=== PATIENT | male | born 1940 | race Caucasian/White ===

== ENCOUNTER → 2020-07-08 | Outpatient (CLI) | payer MEDICARE | END | disposition home or self-care (01) | LOC: RAH 14:30 | PROVIDERS: ATTEND Family Medicine | DX: C61 Malignant neoplasm of prostate (principal); N40.1 Benign prostatic hyperplasia with lower urinary tract symptoms; R53.0 Neoplastic (malignant) related fatigue | CPT/HCPCS: 76770 ==

== ENCOUNTER 2021-03-03 00:49 | Emergency (ER) | payer MEDICARE ==
[~2021-03-03] VITALS: Ht 170.2 cm; Wt 61.7 kg
[2021-03-03 01:26] LABS: APPEARANCE,URINE Clear (CLEAR); BILIRUBIN,URINE Negative (NEGATIVE); COLOR,URINE Yellow (YELLOW); GLUCOSE, URINE (UA) Negative (NEGATIVE); KETONES,URINE Negative (NEGATIVE); LEUKOCYTE ESTERASE ,URINE Negative (NEGATIVE); NITRATE,URINE Negative (NEGATIVE); OCCULT BLOOD,URINE Negative (NEGATIVE); PH,URINE 6.5 (5.0-8.0); PROTEIN,URINE Negative (NEGATIVE)
[2021-03-03 01:52] LABS: BASOPHILS % (AUTO) 0.3 % (0.0-5.0); EOSINOPHILS % (AUTO) 2.9 % (0.0-8.0); LYMPHOCYTES % (AUTO) 17.8 % (21.0-51.0); MEAN CORPUSCULAR HEMOGLOBIN 31.8 pg (27.0-33.0); MEAN CORPUSCULAR HGB CONC 33.5 g/dL (32.0-36.0); MEAN CORPUSCULAR VOLUME 94.7 fL (79-99); MONOCYTES % (AUTO) 10.8 % (3.0-13.0); NEUTROPHILS % (AUTO) 67.9 % (40.0-77.0); PLATELET COUNT (AUTO) 188 K/uL (130-400); RED BLOOD CELL COUNT(AUTO) 3.59 MIL/uL (4.50-6.20); RED CELL DISTRIBUTION WIDTH 12.4 % (11.0-15.5); WHITE BLOOD COUNT (AUTO) 3.8 K/uL (4.8-10.8)
[2021-03-03] MEDS ORDERED: 0.9%NACL 1000ML 1,000 ML IV ONE (02:00)
[2021-03-03 02:03] LABS: POTASSIUM 4.4 mmol/L (3.5-5.1)
[2021-03-03 02:09] LABS: B-TYPE NATRIURETIC PEPTIDE 122 pg/mL (0-100)
[2021-03-03 02:16] LABS: ALBUMIN 3.5 g/dL (3.5-5.0); BILIRUBIN,TOTAL 0.4 mg/dL (0.2-1.0); THYROID STIMULATING HORMONE 1.55 uIU/mL (0.36-3.74); TOTAL PROTEIN, SERUM 6.8 g/dL (6.0-8.3)
[2021-03-03] MEDS ORDERED: IOHEXOL 350 MG/ML 100ML INFUS..BTL IV ONE (02:36)
[2021-03-03 03:33] VITALS: BP 149/75
== END 2021-03-03 05:06 | disposition home or self-care (01) ==
LOC: EDH 00:49
DX: E86.9 Volume depletion, unspecified (principal); R53.1 Weakness; R53.81 Other malaise; I25.10 Atherosclerotic heart disease of native coronary artery without angina pectoris; I25.2 Old myocardial infarction; M19.90 Unspecified osteoarthritis, unspecified site; Z85.46 Personal history of malignant neoplasm of prostate; Z95.5 Presence of coronary angioplasty implant and graft
CPT/HCPCS: 36415; 70450; 71260; 74177; 80053; 81003; 83605; 83735; 83880; 84443; 84484; 85025; 96360; 96361; 99285; J7030; Q9967

== ENCOUNTER → 2021-03-12 | Outpatient (CLI) | payer MEDICARE | END | disposition home or self-care (01) | LOC: SHCH 15:43 | PROVIDERS: ATTEND Internal Medicine Cardiovascular Disease | DX: I35.1 Nonrheumatic aortic (valve) insufficiency (principal); R55 Syncope and collapse | CPT/HCPCS: 93306; 93356 ==

== ENCOUNTER 2021-04-18 08:05 | Observation (INO) | payer MEDICARE ==
[~2021-04-18] VITALS: Ht 170.2 cm; Wt 110.1 kg
[2021-04-18 08:56] LABS: BASOPHILS % (AUTO) 1.2 % (0.0-5.0); HEMATOCRIT 32.1 % (42-54); LYMPHOCYTES % (AUTO) 14.4 % (21.0-51.0); MEAN CORPUSCULAR HEMOGLOBIN 30.8 pg (27.0-33.0); MEAN CORPUSCULAR HGB CONC 31.8 g/dL (32.0-36.0); MONOCYTES % (AUTO) 8.9 % (3.0-13.0); NEUTROPHILS % (AUTO) 64.3 % (40.0-77.0); PLATELET COUNT (AUTO) 186 K/uL (130-400); RED BLOOD CELL COUNT(AUTO) 3.31 MIL/uL (4.50-6.20); RED CELL DISTRIBUTION WIDTH 12.1 % (11.0-15.5); WHITE BLOOD COUNT (AUTO) 4.2 K/uL (4.8-10.8)
[2021-04-18] MEDS ORDERED: 0.9%NACL 1000ML 1,000 ML IV ONE (09:00)
[2021-04-18 09:07] LABS: CREATININE 1.1 mg/dL (0.5-1.5); INR 1.07 (0.85-1.15); POTASSIUM 4.1 mmol/L (3.5-5.1); PROTHROMBIN TIME 11.6 SEC (9.6-11.6)
[2021-04-18 09:11] LABS: ALBUMIN 3.7 g/dL (3.5-5.0); BILIRUBIN,TOTAL 0.5 mg/dL (0.2-1.0); TOTAL PROTEIN, SERUM 7.1 g/dL (6.0-8.3)
[2021-04-18 09:19] LABS: B-TYPE NATRIURETIC PEPTIDE 154 pg/mL (0-100)
[2021-04-18 09:23] LABS: APPEARANCE,URINE Clear (CLEAR); BILIRUBIN,URINE Negative (NEGATIVE); COLOR,URINE Yellow (YELLOW); GLUCOSE, URINE (UA) Negative (NEGATIVE); KETONES,URINE Negative (NEGATIVE); LEUKOCYTE ESTERASE ,URINE Negative (NEGATIVE); NITRATE,URINE Negative (NEGATIVE); OCCULT BLOOD,URINE Negative (NEGATIVE); PH,URINE 6.5 (5.0-8.0); PROTEIN,URINE Negative (NEGATIVE)
[2021-04-18] MEDS ORDERED: IOHEXOL-350 75 ML VIAL IV ONE (09:38)
[2021-04-18 10:49] LABS: HEMATOCRIT 33.2 % (42-54)
[2021-04-18] MEDS ORDERED: ACETAMINOPHEN 325 MG TAB PO PRN (11:00)
[2021-04-18] MEDS ORDERED: TEMAZEPAM 15 MG CAPSULE PO PRN (11:00)
[2021-04-18] MEDS ORDERED: ACETAMINOPHEN 650 MG SUPPOSITORY RC PRN (11:00)
[2021-04-18] MEDS ORDERED: DOCUSATE SODIUM 100 MG CAP PO PRN (11:00)
[2021-04-18] MEDS ORDERED: 0.9%NACL 1000ML 1,000 ML IV SCH (11:00)
[2021-04-18] MEDS ORDERED: FINA5TAB41 PO (11:41)
[2021-04-18] MEDS ORDERED: DULO30CA52 PO (11:41)
[2021-04-18] MEDS ORDERED: CARV6.25 PO (11:41)
[2021-04-18] MEDS ORDERED: ISOS30TA92 PO (11:41)
[2021-04-18] MEDS ORDERED: DOXA1TAB2 PO (11:41)
[2021-04-18] MEDS ORDERED: LOSA100T58 PO (11:41)
[2021-04-18] MEDS ORDERED: BICA50TA7 PO (11:41)
[2021-04-18] MEDS ORDERED: HYDR-4060 PO (11:41)
[2021-04-18] MEDS ORDERED: FERR-82 PO (11:42)
[2021-04-18] MEDS ORDERED: EZET10TA48 PO (11:42)
[2021-04-18] MEDS ORDERED: DONE10TA43 PO (11:42)
[2021-04-18] MEDS ORDERED: FLUT16H NASAL (11:42)
[2021-04-18] MEDS ORDERED: LOSARTAN 50 MG TABLET ONE (12:28)
[2021-04-18] MEDS ORDERED: LEVOFLOXACIN 500 MG/D5W 100 ML 100 ML IV SCH (14:30)
[2021-04-18 16:01] LABS: HEMATOCRIT 32.1 % (42-54)
[2021-04-18 18:20] VITALS: BP 142/59
[2021-04-18 18:23] VITALS: BP 149/77
[2021-04-18 18:26] VITALS: BP 112/67
[2021-04-18] MEDS ORDERED: HYDROCODONE/ACETAMINOPHEN 5/325 MG TAB PO PRN (18:30)
[2021-04-18] MEDS ORDERED: IOHEXOL-350 50ML VIAL IV ONE (18:33)
[2021-04-18] MEDS ORDERED: IOHEXOL 350 MG/ML 100ML INFUS..BTL IV ONE (18:33)
[2021-04-18 19:15] VITALS: BP 139/78
[2021-04-18] MEDS ORDERED: CARVEDILOL 6.25 MG TABLET PO SCH (21:00)
[2021-04-18] MEDS ORDERED: FERROUS SULFATE 325 MG TABLET.DR PO SCH (21:00)
[2021-04-18] MEDS ORDERED: DONEPEZIL HCL 5 MG TAB PO SCH (21:00)
[2021-04-18] MEDS ORDERED: METRONIDAZOLE 500MG/100ML BAG 100 ML IVPB SCH (22:00)
[2021-04-19] MEDS ORDERED: EZETIMIBE 10 MG TAB PO SCH (09:00)
[2021-04-19] MEDS ORDERED: DULOXETINE HCL 30 MG CAP PO SCH (09:00)
[2021-04-19] MEDS ORDERED: BICALUTAMIDE 50 MG PO SCH (09:00)
[2021-04-19] MEDS ORDERED: PANTOPRAZOLE 40 MG TAB DR PO SCH (09:00)
[2021-04-19] MEDS ORDERED: LOSARTAN 100 MG TABLET PO SCH (09:00)
[2021-04-19] MEDS ORDERED: FINASTERIDE 5 MG TABLET PO SCH (09:00)
[2021-04-19] MEDS ORDERED: DOXAZOSIN MESYLATE 2 MG TABLET PO SCH (09:00)
[2021-04-19] MEDS ORDERED: ISOSORBIDE MONO 30MG SR TAB PO SCH (09:00)
[2021-04-19] MEDS ORDERED: FLUTICASONE PROPIONATE 50MCG/SPRAY 16 GM BOTTLE EN SCH (09:00)
== END 2021-04-18 21:30 | disposition left against medical advice (07) ==
LOC: EDH 08:05 → EDHIP 10:31 → 4AH 17:45
PROVIDERS: ADMIT Internal Medicine; ATTEND Internal Medicine
DX: K57.31 Diverticulosis of large intestine without perforation or abscess with bleeding (principal); D62 Acute posthemorrhagic anemia; C61 Malignant neoplasm of prostate; I10 Essential (primary) hypertension; I25.10 Atherosclerotic heart disease of native coronary artery without angina pectoris; M19.011 Primary osteoarthritis, right shoulder; N40.0 Benign prostatic hyperplasia without lower urinary tract symptoms; E78.5 Hyperlipidemia, unspecified; E86.9 Volume depletion, unspecified; F03.90 Unspecified dementia, unspecified severity, without behavioral disturbance, psychotic disturbance, mood disturbance, and anxiety; I95.9 Hypotension, unspecified; R29.6 Repeated falls; Z88.0 Allergy status to penicillin; Z90.49 Acquired absence of other specified parts of digestive tract; Z79.899 Other long term (current) drug therapy; Z98.890 Other specified postprocedural states
CPT/HCPCS: 36415; 70450; 71045; 73030; 74177; 80053; 81003; 82270; 82550 ×2; 83690; 83874 ×2; 83880; 84484 ×3; 85014 ×2; 85018 ×2; 85025; 85610; 93005; 96361; 96365; 99285; G0378 ×11; J7030; Q9967

== ENCOUNTER 2021-05-13 05:59 | Day surgery (SDC) | payer MEDICARE ==
[2021-05-12 11:38] LABS: BASOPHILS % (AUTO) 0.6 % (0.0-5.0); EOSINOPHILS % (AUTO) 8.7 % (0.0-8.0); HEMATOCRIT 31.4 % (42-54); LYMPHOCYTES % (AUTO) 12.4 % (21.0-51.0); MEAN CORPUSCULAR HEMOGLOBIN 30.8 pg (27.0-33.0); MEAN CORPUSCULAR HGB CONC 32.8 g/dL (32.0-36.0); MONOCYTES % (AUTO) 6.9 % (3.0-13.0); NEUTROPHILS % (AUTO) 71.2 % (40.0-77.0); PLATELET COUNT (AUTO) 189 K/uL (130-400); RED BLOOD CELL COUNT(AUTO) 3.34 MIL/uL (4.50-6.20); RED CELL DISTRIBUTION WIDTH 12.1 % (11.0-15.5); WHITE BLOOD COUNT (AUTO) 4.9 K/uL (4.8-10.8)
[2021-05-12 11:44] LABS: CREATININE 1.1 mg/dL (0.5-1.5); POTASSIUM 4.4 mmol/L (3.5-5.1)
[2021-05-12 11:48] LABS: INR 1.03 (0.85-1.15); PROTHROMBIN TIME 11.2 SEC (9.6-11.6)
[2021-05-12 11:49] LABS: PARTIAL THROMBOPLASTIN TIME 27.6 SEC (26.3-35.5)
[2021-05-12 11:56] LABS: APPEARANCE,URINE Clear (CLEAR); BILIRUBIN,URINE Negative (NEGATIVE); COLOR,URINE Dark Yellow (YELLOW); GLUCOSE, URINE (UA) Negative (NEGATIVE); KETONES,URINE Trace mg/dL (NEGATIVE); LEUKOCYTE ESTERASE ,URINE Negative (NEGATIVE); NITRATE,URINE Negative (NEGATIVE); OCCULT BLOOD,URINE Negative (NEGATIVE); PROTEIN,URINE Negative (NEGATIVE)
[2021-05-12 12:34] VITALS: BP 114/59
[2021-05-12 13:13] LABS: BACTERIA,URINE Rare /HPF (None Seen); RBC,URINE 0-1 /HPF (0-1); SQUAMOUS EPITHELIAL CELL,UR Rare /HPF (0-2); WBC,URINE 0-1 /HPF (0-1)
[2021-05-13] VITALS (10 sets, daily range): BP systolic 118–159; BP diastolic 53–84
[~2021-05-13] VITALS: Ht 167.6 cm; Wt 63.5 kg
[~2021-05-13 05:59] MED LIST: 0.9% NACL 500ML IV.SOLN 500 ML IV SCH; CARV6.25 PO; DOCU100T PO; DONE10TA43 PO; DOXA1TAB2 PO; DULO30CA52 PO; EZET10TA48 PO; FERR-82 PO; HYDR-4060 PO; ISOS30TA92 PO; LOSA100T58 PO
[2021-05-13] MEDS ORDERED: 0.9%NACL 1000ML 1,000 ML IV ONE (06:17)
[2021-05-13] MEDS ORDERED: BIVALIRUDIN 250 MG/VIAL IV ONE (07:08)
[2021-05-13] MEDS ORDERED: HEPARIN 10,000 UNIT/10ML (1,000 UNIT/ML) VIAL ONE (07:08)
[2021-05-13] MEDS ORDERED: IOHEXOL-350 50ML VIAL IV ONE (07:08)
[2021-05-13] MEDS ORDERED: FENTANYL CITRATE PF 50 MCG/1 ML 2ML VIAL ONE (07:08)
[2021-05-13] MEDS ORDERED: MIDAZOLAM HCL 1 MG/ML 2ML VIAL ONE (07:08)
[2021-05-13] MEDS ORDERED: IOHEXOL 350 MG/ML 100ML INFUS..BTL IV ONE ×2 (07:08→07:43)
[2021-05-13] MEDS ORDERED: NITROGLYCERIN 50MG VIAL ONE ×2 (07:08→07:09)
[2021-05-13] MEDS ORDERED: LIDOCAINE HCL 400MG/20ML VIAL ONE (07:09)
[2021-05-13] MEDS ORDERED: NITROGLYCERIN 0.4 MG SL TAB SL PRN (08:30)
[2021-05-13] MEDS ORDERED: GLUCAGON 1MG KIT 1 MG ML IM PRN (08:30)
[2021-05-13] MEDS ORDERED: 0.9%NACL 1000ML 1,000 ML IV SCH (08:30)
[2021-05-13] MEDS ORDERED: DEXTROSE 50%-WATER 50 ML DISP.SYRIN IV PRN (08:30)
== END 2021-05-13 13:15 | disposition home or self-care (01) ==
LOC: DAH 05:59
PROVIDERS: ATTEND Internal Medicine Cardiovascular Disease
DX: I25.118 Atherosclerotic heart disease of native coronary artery with other forms of angina pectoris (principal); I11.0 Hypertensive heart disease with heart failure; I50.32 Chronic diastolic (congestive) heart failure; E78.5 Hyperlipidemia, unspecified; M19.90 Unspecified osteoarthritis, unspecified site; I25.2 Old myocardial infarction; Z90.49 Acquired absence of other specified parts of digestive tract; Z88.0 Allergy status to penicillin; Z79.01 Long term (current) use of anticoagulants; Z79.899 Other long term (current) drug therapy; Z98.890 Other specified postprocedural states; Z95.5 Presence of coronary angioplasty implant and graft
CPT/HCPCS: 36415; 71045; 80048; 81001; 85025; 85610; 85730; 93005; 93458; A4215; A4216; A4221; A4222; A4223 ×3; A4606; A4663; C1894 ×2; J1644; J2250; J3010; J3490 ×3; J7030; Q9965; Q9967 ×3; 99156; 99157; J0583

== ENCOUNTER → 2021-10-29 | Outpatient (CLI) | payer MEDICARE ==
[~2021-10-29] MED LIST changes: -0.9% NACL 500ML IV.SOLN 500 ML IV SCH; -CARV6.25 PO; +DOCU100C33 PO; -DOCU100T PO; +FLUT16H NASAL; +LEVO500T90 PO; -LOSA100T58 PO; +LOSA50TA64 PO; +MEMA5TAB42 PO; +PIND10TA2 PO
== END | disposition home or self-care (01) ==
LOC: RAH 14:22
PROVIDERS: ATTEND Psychiatry & Neurology Neurology
DX: I67.82 Cerebral ischemia (principal); F03.90 Unspecified dementia, unspecified severity, without behavioral disturbance, psychotic disturbance, mood disturbance, and anxiety
CPT/HCPCS: 70450

== ENCOUNTER 2022-04-12 09:10 | Emergency (ER) | payer MEDICARE ==
[~2022-04-12] VITALS: Ht 172.7 cm; Wt 74.8 kg
[~2022-04-12 09:10] MED LIST changes: +LEVO-70 PO; -LEVO500T90 PO
[2022-04-12 09:12] VITALS: BP 124/76
[2022-04-12] MEDS ORDERED: GENT5DRO32 OP (10:18)
== END 2022-04-12 10:27 | disposition home or self-care (01) ==
LOC: EDH 09:10
DX: H10.9 Unspecified conjunctivitis (principal); B34.9 Viral infection, unspecified; E78.5 Hyperlipidemia, unspecified; I10 Essential (primary) hypertension; F03.90 Unspecified dementia, unspecified severity, without behavioral disturbance, psychotic disturbance, mood disturbance, and anxiety; Z90.49 Acquired absence of other specified parts of digestive tract; Z79.899 Other long term (current) drug therapy; Z88.0 Allergy status to penicillin; Z95.5 Presence of coronary angioplasty implant and graft; Z20.822 Contact with and (suspected) exposure to COVID-19
CPT/HCPCS: 87804 ×2; 87635; 99283; C9803

== ENCOUNTER → 2022-07-29 | Outpatient (CLI) | payer MEDICARE ==
[~2022-07-29] MED LIST changes: +GENT5DRO8 OP
[2022-07-29 12:39] LABS: CREATININE 1.1 mg/dL (0.5-1.5); POTASSIUM 4.1 mmol/L (3.5-5.1)
== END | disposition home or self-care (01) ==
LOC: LAB 08:05
PROVIDERS: ATTEND Internal Medicine Cardiovascular Disease
DX: I25.118 Atherosclerotic heart disease of native coronary artery with other forms of angina pectoris (principal)
CPT/HCPCS: 36415; 80048; 83880

== ENCOUNTER → 2022-08-24 | Outpatient (CLI) | payer MEDICARE | END | disposition home or self-care (01) | LOC: SHCH 10:55 | PROVIDERS: ATTEND Internal Medicine Cardiovascular Disease | DX: I11.9 Hypertensive heart disease without heart failure (principal); I35.8 Other nonrheumatic aortic valve disorders; E78.5 Hyperlipidemia, unspecified | CPT/HCPCS: 93306 ==